=== PATIENT | female | born 1970 | race Caucasian/White ===

== ENCOUNTER 2020-09-09 18:07 | Emergency (ER) | payer OTHER ==
[~2020-09-09 18:07] MED LIST: ASPIR 8181 MG PO; ATROVENT (00.2 MG/ML INH; BONIVA150 MG PO; CYMBALTA60 MG PO; FLONASE ALLERG9.9 ML INH; GLUCOPHAGE1000 MG PO; LISINOPRIL 10MG10 MG PO; NORCO 5-325 TA1 EACH PO; OYSTER SHELL C500 MG PO; PRAVACHOL40 MG PO; TIZANIDINE HCL4 M1 PO; VENTOLIN HFA18 GM INH; VOLTAREN **OUT50 MG PO; ZYRTEC10 M3 PO; [UNRECOGNIZED DRUG - OTHER] TOP
[2020-09-09] MEDS ORDERED: CYCLOBENZAPRINE10 MG PO (20:31)
== END 2020-09-09 20:53 | disposition home or self-care (01) ==
LOC: FER 18:07
DX: S63.502A Unspecified sprain of left wrist, initial encounter (principal); S30.0XXA Contusion of lower back and pelvis, initial encounter; E11.9 Type 2 diabetes mellitus without complications; W07.XXXA Fall from chair, initial encounter
CPT/HCPCS: 72220; 73110

== ENCOUNTER 2021-06-07 08:26 | Emergency (ER) | payer OTHER ==
[~2021-06-07 08:26] MED LIST changes: +CYCLOBENZAPRINE10 MG PO
[2021-06-07 09:54] LABS: CORONAVIRUS 2019 SARS-COV-2 NEGATIVE (NEGATIVE); INFLUENZA A NAA NEGATIVE (NEGATIVE)
[2021-06-07] MEDS ORDERED: AUGMENTIN 875-1 EACH PO (10:41)
== END 2021-06-07 11:26 | disposition home or self-care (01) ==
LOC: FER 08:26
PROVIDERS: Emergency Medicine
DX: J32.9 Chronic sinusitis, unspecified (principal); I10 Essential (primary) hypertension; E11.9 Type 2 diabetes mellitus without complications; F17.200 Nicotine dependence, unspecified, uncomplicated; Z20.822 Contact with and (suspected) exposure to COVID-19
CPT/HCPCS: 99283; U0002